=== PATIENT | female | born 1975 | race Caucasian/White ===

== ENCOUNTER → 2017-05-07 | Outpatient (CLI) | payer BC ==
[~2017-05-07] MED LIST: LORA1 PO; METO25ER PO; MULVITMIND PO; RXLORA1 PO
== END | disposition home or self-care (01) ==
LOC: OLS 12:27
DX: N76.0 Acute vaginitis (principal)
CPT/HCPCS: 87070; 87205

== ENCOUNTER → 2017-05-20 | Outpatient (CLI) | payer BC | END | disposition home or self-care (01) | LOC: OLS 10:26 | DX: N76.2 Acute vulvitis (principal); N89.8 Other specified noninflammatory disorders of vagina | CPT/HCPCS: 87070; 87147; 87205 ==

== ENCOUNTER → 2017-06-25 | Outpatient (CLI) | payer BC ==
[2017-06-27 13:55] LABS: HPV Genotype 16 Not Detected (NOTDET); HPV Genotype 18 Not Detected (NOTDET)
[2017-07-07 13:37] LABS: HPV High Risk Other Not Detected (NOTDET)
== END | disposition home or self-care (01) ==
LOC: OLS 13:23
PROVIDERS: Nurse Practitioner Women's Health
DX: Z12.4 Encounter for screening for malignant neoplasm of cervix (principal)
CPT/HCPCS: 87624; G0123

== ENCOUNTER → 2018-06-04 | Outpatient (CLI) | payer BC | END | disposition home or self-care (01) | LOC: LAB SHORT 09:50 → LAB 09:50 | DX: N89.8 Other specified noninflammatory disorders of vagina (principal) | CPT/HCPCS: 87070; 87205 ==

== ENCOUNTER → 2018-07-27 | Outpatient (CLI) | payer OTHER, BC ==
[2018-07-29 08:13] LABS: HIV SCREEN 4TH GENERATION WRFX Non Reactive (Non Reactive)
[2018-07-29 09:10] LABS: HBSAG SCREEN Negative (Negative); HCV ANTIBODY <0.1 (0.0-0.9)
== END | disposition home or self-care (01) ==
LOC: LAB 18:43 → LAB SHORT 18:43
PROVIDERS: Physician Assistant
DX: Z20.9 Contact with and (suspected) exposure to unspecified communicable disease (principal)
CPT/HCPCS: 84460; 86317; 86803; 87340; 87389

== ENCOUNTER → 2018-09-10 | Outpatient (CLI) | payer OTHER, BC ==
[2018-09-11 07:09] LABS: HIV SCREEN 4TH GENERATION WRFX Non Reactive (Non Reactive)
== END ==
LOC: LAB SHORT 12:55 → LAB EV 12:55
PROVIDERS: Family Medicine
DX: Z20.9 Contact with and (suspected) exposure to unspecified communicable disease (principal)
CPT/HCPCS: 86803; 87389

== ENCOUNTER → 2018-12-02 | Outpatient (CLI) | payer BC | END | disposition home or self-care (01) | LOC: LAB SHORT 12:35 → LAB 12:35 | DX: N89.8 Other specified noninflammatory disorders of vagina (principal) | CPT/HCPCS: 87070; 87077; 87185; 87186; 87205 ==

== ENCOUNTER → 2018-12-08 | Outpatient (CLI) | payer BC | END | disposition home or self-care (01) | LOC: LAB 17:56 → LAB SHORT 17:56 | DX: A64 Unspecified sexually transmitted disease (principal) | CPT/HCPCS: 87491 ==

== ENCOUNTER → 2018-12-15 | Outpatient (CLI) | payer BC, OTHER ==
[2018-12-17 01:06] LABS: HIV SCREEN 4TH GENERATION WRFX Non Reactive (Non Reactive)
== END | disposition home or self-care (01) ==
LOC: LAB EV 15:35 → LAB SHORT 15:35
PROVIDERS: Family Medicine
DX: Z20.9 Contact with and (suspected) exposure to unspecified communicable disease (principal)
CPT/HCPCS: 87389

== ENCOUNTER → 2018-12-28 | Outpatient (CLI) | payer BC ==
[2018-12-30 21:06] LABS: CHLAMYDIA TRACHOMATIS, NAA Negative (Negative); NEISSERIA GONORRHOEAE, NAA Negative (Negative)
== END | disposition home or self-care (01) ==
LOC: LAB SHORT 17:53 → LAB 17:53
PROVIDERS: Nurse Practitioner Women's Health
DX: N89.8 Other specified noninflammatory disorders of vagina (principal); A64 Unspecified sexually transmitted disease
CPT/HCPCS: 87070; 87147; 87205; 87491; 87591

== ENCOUNTER → 2019-01-23 | Outpatient (CLI) | payer BC ==
[2019-01-25 06:04] LABS: HCV ANTIBODY <0.1 (0.0-0.9); HIV SCREEN 4TH GENERATION WRFX Non Reactive (Non Reactive)
== END | disposition home or self-care (01) ==
LOC: LAB EV 13:57 → LAB SHORT 13:57
PROVIDERS: General Practice
DX: Z20.9 Contact with and (suspected) exposure to unspecified communicable disease (principal)
CPT/HCPCS: 84460; 86317; 86803; 87389

== ENCOUNTER → 2021-05-19 | Outpatient (CLI) | payer BC | END | disposition home or self-care (01) | LOC: LAB SHORT 12:20 → LAB 12:20 | DX: J02.9 Acute pharyngitis, unspecified (principal) | CPT/HCPCS: 87081 ==

== ENCOUNTER → 2021-10-28 | Outpatient (CLI) | payer BC | END | disposition home or self-care (01) | LOC: LAB 07:30 → LAB SHORT 07:30 | DX: L57.0 Actinic keratosis (principal) | CPT/HCPCS: 88305 ==

== ENCOUNTER → 2022-12-03 | Outpatient (CLI) | payer BC, OTHER ==
[2022-12-03 17:52] LABS: BASOPHILS ABSOLUTE AUTO 0.03 K/mm3 (0.00-0.23); BASOPHILS PERCENT AUTO 0 % (0-2); EOSINOPHILS PERCENT AUTO 1 % (0-6); Hematocrit 44.9 % (33.0-51.0); Hemoglobin 15.7 g/dL (11.5-16.0); IMMATURE GRAN ABSOLUTE AUTO 0.01 K/mm3 (0.00-0.10); IMMATURE GRAN PERCENT AUTO 0 % (0-1); LYMPHOCYTES ABSOLUTE AUTO 2.38 K/mm3 (0.84-5.20); LYMPHOCYTES PERCENT AUTO 34 % (21-46); MONOCYTES ABSOLUTE AUTO 0.37 K/mm3 (0.16-1.47); MONOCYTES PERCENT AUTO 5 % (4-13); Mean Corpuscular HGB 32.2 pg (26.0-34.0); Mean Corpuscular Volume 92 fL (80-100); NEUTROPHILS PERCENT AUTO 59 % (41-73); Platelet Count 305 K/mm3 (150-400); RDW Coefficient Variation 11.9 % (11.7-14.2); RDW Standard Deviation 39.8 fL (35.1-46.3); Red Blood Cell Count 4.87 M/mm3 (3.80-5.20); White Blood Cell Count 7.09 K/mm3 (4.00-11.30)
[2022-12-03 18:03] LABS: Albumin, Blood 4.3 g/dL (3.4-5.0); Albumin/Globulin Ratio 1.2 (0.8-1.8); Bilirubin, Total 0.5 mg/dL (0.1-1.0); Bun/Creatinine Ratio 18.1 (12.0-20.0); Calcium, Blood 9.2 mg/dL (8.5-10.1); Creatinine, Blood 0.94 mg/dL (0.40-1.00); Globulin, Blood 3.6 g/dL (2.2-4.0); Potassium, Blood 3.7 mmol/L (3.5-5.5); Total Protein, Blood 7.9 g/dL (6.4-8.2)
== END ==
LOC: LAB 17:48 → LAB SHORT 17:48
PROVIDERS: Physician Assistant Medical
DX: R07.89 Other chest pain (principal)
CPT/HCPCS: 80053; 85025

== ENCOUNTER 2024-05-05 05:45 | Day surgery (SDC) | payer BC ==
[~2024-05-05] VITALS: Ht 170.2 cm; Wt 86.8 kg
[2024-05-05] VITALS (10 sets, daily range): BP systolic 105–144; BP diastolic 71–92
[~2024-05-05 05:45] MED LIST changes: +CARV6.25 PO; +OMEP20ER PO; +SPIR25 PO
[2024-05-05] MEDS ORDERED: Ropivacaine 0.5% HCL/PF 5 MG/ML 30ML Vial ONE (06:20)
[2024-05-05] MEDS ORDERED: propofoL 150 ML IV ONE (06:20)
[2024-05-05] MEDS ORDERED: Dexmedetomidine HCL 200 MCG / 2 ML ONE (06:20)
[2024-05-05] MEDS ORDERED: Lidocaine HCl 4% 5 ML SDA ONE (06:21)
[2024-05-05] MEDS ORDERED: Lactated Ringer's 1,000 ML IV SCH (06:25)
[2024-05-05] MEDS ORDERED: Tranexamic Acid 1,000 MG in NS 100 ML IV SCH (06:25)
[2024-05-05] MEDS ORDERED: CeFAZolin Sodium 2,000 MG in NS 100 ML IV SCH (06:25)
[2024-05-05] MEDS ORDERED: Dexamethasone Sod Phos 10 MG/ML 1ML VIAL ONE (06:27)
[2024-05-05] MEDS ORDERED: Lidocaine HCl 2% 20 ML MDV ONE (06:27)
[2024-05-05] MEDS ORDERED: EpiNEPhrine 1 MG/1 ML 1ML Vial ONE ×4 (06:27→09:32)
[2024-05-05] MEDS ORDERED: Ondansetron HCl 2 MG / ML 2ML Vial ONE (06:27)
[2024-05-05] MEDS ORDERED: Metoclopramide HCl 5MG / ML 2ML Vial ONE (06:27)
[2024-05-05] MEDS ORDERED: DiphenhydrAMINE HCl 50 MG/ML 1ML Vial ONE (06:30)
[2024-05-05] MEDS ORDERED: Ketorolac Tromethamine 30mg Vial ONE (06:30)
[2024-05-05] MEDS ORDERED: HYDROmorphone HCl/Pf 1MG SYR ONE (06:33)
[2024-05-05] MEDS ORDERED: Scopolamine Hydrobromide Patch TOP ONE (07:05)
[2024-05-05] MEDS ORDERED: Bupivacaine 0.5% HCl 5 MG/ML 30MLVIAL ONE (07:13)
--- NOTE | 2024-05-05 07:13 | NUR ---
TIME OUT AT 0713 W/DR. LOPEZ FOR LEFT PERIFERAL NERVE BLOCK
[2024-05-05] MEDS ORDERED: Acetaminophen 500 MG Tab ONE (07:23)
--- NOTE | 2024-05-05 07:29 | NUR ---
Ambulatory in Day Surgery Patient confirms NPO status and agrees with scheduled surgery. Pre-Op teaching done. Pt verbalizes understanding. History, Chart, Medications and Allergies reviewed before start of procedure. Patient reports completing Chlorhexadine shower X2 prior to admission to hospital.Patient States Post-Procedure ride home has been arranged.
[2024-05-05] MEDS ORDERED: propofoL 40 ML IV ONE (09:27)
[2024-05-05] MEDS ORDERED: OxyCODONE HCL 5 MG TAB PO PRN (10:15)
--- NOTE | 2024-05-05 11:48 | NUR ---
PT AMB TO BATHROOM WITH STAND BY ASSIST. REVIEWED ALL DISCHARGE INSTRUCTIONS WITH PT AND HER FAMILY. CMS INTACT, DRESSING CLEAN DRY AND INTACT. INSTRUCTIONS FOR POLAR PACK AND SLING INFORMATION PROVIDED. PT OUT OF DEPARTMENT VIA WHEELCHAIR.
== END 2024-05-05 23:00 | disposition home or self-care (01) ==
LOC: ORSCMMR 05:45 → ORD 07:30 → ORSCMMR 23:00
PROVIDERS: Orthopaedic Surgery Sports Medicine
PROC: 0LS44ZZ Reposition Left Upper Arm Tendon, Percutaneous Endoscopic Approach (ICD-10-PCS; principal; 2024-05-05 07:30)
PROC: 0LQ24ZZ Repair Left Shoulder Tendon, Percutaneous Endoscopic Approach (ICD-10-PCS; principal; 2024-05-05 07:30)
DX: M75.32 Calcific tendinitis of left shoulder (principal); S43.432A Superior glenoid labrum lesion of left shoulder, initial encounter; M75.112 Incomplete rotator cuff tear or rupture of left shoulder, not specified as traumatic; I10 Essential (primary) hypertension; K21.9 Gastro-esophageal reflux disease without esophagitis; I42.8 Other cardiomyopathies; E66.9 Obesity, unspecified; Z68.30 Body mass index [BMI] 30.0-30.9, adult; Z79.899 Other long term (current) drug therapy
CPT/HCPCS: A9270; C1713; J0171; J0690; J1100; J1171; J1200; J1885; J2003; J2405; J2704; J2765; J2795; J7120